=== PATIENT | female | born 1960 | race Two or more races ===

== ENCOUNTER 2020-06-10 11:02 | Day surgery (SDC) | payer OTHER ==
[~2020-06-10 11:02] MED LIST: DICY20TA PO
[2020-06-10] MEDS ORDERED: PERCOCET 5-3251 EACH PO (18:20)
[2020-06-10] MEDS ORDERED: NEURONTIN300 MG PO (18:21)
[2020-06-10] MEDS ORDERED: RECTICARE30 GM TOP (18:22)
== END 2020-06-10 22:53 | disposition home or self-care (01) ==
LOC: CIR.AMB 11:02
PROVIDERS: ATTEND Surgery
DX: K60.1 Chronic anal fissure (principal); K64.8 Other hemorrhoids; Z20.828 Contact with and (suspected) exposure to other viral communicable diseases

== ENCOUNTER 2025-05-22 07:58 | Emergency (ER) | payer OTHER ==
[~2025-05-22] VITALS: Ht 157.5 cm; Wt 62.6 kg
[~2025-05-22 07:58] MED LIST changes: +NEURONTIN300 MG PO; +PERCOCET 5-3251 EACH PO; +RECTICARE30 GM TOP
[2025-05-22] MEDS ORDERED: GUAIFEN/DEXTROMETHORPHAN/PE 10 ML BLIST.PACK PO ONE (09:00)
[2025-05-22] MEDS ORDERED: GUAIFENESIN/DEXTROMETHORPHAN 100MG/10ML BLIST.PACK PO ONE (09:04)
[2025-05-22 09:40] LABS: BASO % 0.5 % (0.1-1.2); EOS # 0.00 (0.04-0.54); EOS % 0.0 % (0.7-7.0); LYMPH # 0.32 (1.18-3.74); LYMPH % 7.2 % (19.3-53.1); MEAN PLATELET VOLUME 11.60 fl (9.4-12.4); MONO # 0.50 (0.24-0.82); MONO % 11.3 % (4.7-12.5); NEUT # 3.59 (1.56-6.13); NEUT % 80.8 % (34.0-71.1); RED CELL DISTRIBUTION WIDTH 11.9 % (11.6-14.4)
[2025-05-22 10:22] LABS: COVID-19 AG NEGATIVE (NEGATIVE)
[2025-05-22] MEDS ORDERED: OSELTAMIVIR PHOSPHATE 75 MG CAPSULE PO ONE ×2 (10:30→10:52)
[2025-05-22] MEDS ORDERED: OSEL75CA PO (10:31)
[2025-05-22] MEDS ORDERED: GILTUSS COUGH-118 M1 PO (10:31)
[2025-05-22] MEDS ORDERED: ACETAMINOPHEN500 M1 PO (10:31)
== END 2025-05-22 11:11 | disposition home or self-care (01) ==
LOC: ER 08:05
PROVIDERS: Preventive Medicine Public Health & General Preventive Medicine
DX: J10.1 Influenza due to other identified influenza virus with other respiratory manifestations (principal); Z20.822 Contact with and (suspected) exposure to COVID-19; Z88.6 Allergy status to analgesic agent; Z88.8 Allergy status to other drugs, medicaments and biological substances